=== PATIENT | male | born 2000 | race Caucasian/White ===

== ENCOUNTER → 2019-10-02 09:56 | Outpatient (CLI) | payer OTHER, SELFPAY ==
--- NOTE | ~2019-10-02 | XR_ITS ---
XR ankle LT min 3V DATE: 10/02/2019 10:35 INDICATION: Left ankle and foot pain TECHNIQUE: 4 views COMPARISON: None FINDINGS: No fracture or dislocation of the ankle or disruption of the ankle mortise. IMPRESSION: No significant abnormality Reviewed, dictated and finalized at location B. IMPRESSION: No significant abnormality
--- NOTE | ~2019-10-02 | XR_ITS ---
XR foot LT min 3V DATE: 10/02/2019 10:35 INDICATION: Left ankle and foot pain TECHNIQUE: 4 views COMPARISON: None FINDINGS: There is a recent nondisplaced transverse linear fracture of the base of the fifth metatars al bone. No other significant abnormality. IMPRESSION: Nondisplaced fracture of base of fifth metatarsal bone Reviewed, dictated and finalized at location B.
== END ==
PROVIDERS: PCP Emergency Medicine; Visit Provider Emergency Medicine
DX: S92.355A Nondisplaced fracture of fifth metatarsal bone, left foot, initial encounter for closed fracture (principal); X58.XXXA Exposure to other specified factors, initial encounter
CPT/HCPCS: 73610; 73630